=== PATIENT | female | born 1970 | race Caucasian/White ===

== ENCOUNTER 2017-03-14 11:02 | Emergency (ER) | payer OTHER ==
[~2017-03-14] VITALS: Ht 160 cm; Wt 76.2 kg
[2017-03-14 11:17] VITALS: BP 163/83
--- NOTE | 2017-03-14 11:33 | PHYS DOC ---
Past Medical History Past Medical History: No Pertinent History Past Surgical History: Appendectomy, Hysterectomy Additional Past Surgical Histo: BUNIONECTOMY, BACK SX Additional Information: 12 CIGS/DAY Alcohol Use: None Drug Use: None Adult General Chief Complaint Chief Complaint: FEVER HPI HPI Patient is a 46 year old female presents to the emergency department stating that she has been having frequency urgency or pain with urination for the last 2 days. She states she had a low-grade fever this morning stating that it was 99. She states she's had some nausea feeling but denies any vomiting. She'll states that she has been having lower back pain. She denies any vaginal discharge. Review of Systems Review of Systems Constitutional: Denies fever or chills [] Eyes: Denies change in visual acuity, redness, or eye pain [] HENT: Denies nasal congestion or sore throat [] Respiratory: Denies cough or shortness of breath [] Cardiovascular: No additional information not addressed in HPI [] GI: Denies abdominal pain, nausea, vomiting, bloody stools or diarrhea [] : dysuria denies hematuria [] Musculoskeletal: Denies back pain or joint pain [] Integument: Denies rash or skin lesions [] Neurologic: Denies headache, focal weakness or sensory changes [] Allergies Allergies Allergies Coded Allergies Type Severity Reaction Last Updated Verified morphine Allergy Intermediate Rash 03/14/17 Yes sulfamethoxazole Allergy Intermediate Hives 03/14/17 Yes trimethoprim Allergy Intermediate Hives 03/14/17 Yes citalopram Adverse Reaction Mild 03/14/17 Yes Physical Exam Physical Exam Constitutional: Well developed, well nourished, no acute distress, non-toxic appearance. [] HENT: Normocephalic, atraumatic, bilateral external ears normal, oropharynx moist, no oral exudates, nose normal. [] Eyes: PERRLA, EOMI, conjunctiva normal, no discharge. [] Neck: Normal range of motion, no tenderness, supple, no stridor. [] Cardiovascular:Heart rate regular rhythm, no murmur [] Lungs & Thorax: Bilateral breath sounds clear to auscultation [] Abdomen: Bowel sounds hypoactive, soft, suprapubic tenderness, no masses, no pulsatile masses. [] Skin: Warm, dry, no erythema, no rash. [] Back: No tenderness, no CVA tenderness. [] Extremities: No tenderness, no cyanosis, no clubbing, ROM intact, no edema. [] Neurologic: Alert and oriented X 3, normal motor function, normal sensory function, no focal deficits noted. [] Psychologic: Affect normal, judgement normal, mood normal. [] Current Patient Data Vital Signs Vital Signs Date Time Temp Pulse Resp B/P Pulse Ox O2 Delivery O2 Flow Rate FiO2 03/14/17 11:17 98.1 73 20 98 Room Air 98.1 Lab Values Laboratory Tests Test 03/14/17 11:20 Urine Collection Type Unknown Urine Color Yellow Urine Clarity Clear Urine pH 7.5 Urine Specific [place] 1.010 Urine Protein Negativemg/dL (NEG-TRACE) Urine Glucose (UA) Negativemg/dL (NEG) Urine Ketones (Stick) Negativemg/dL (NEG) Urine Blood Negative (NEG) Urine Nitrite Negative (NEG) Urine Bilirubin Negative (NEG) Urine Urobilinogen Dipstick 1.0mg/dL (0.2 mg/dL) Urine Leukocyte Esterase Small (NEG) Urine RBC 0/HPF (0-2) Urine WBC 5-10/HPF (0-4) Urine Squamous Epithelial Cells Few/LPF Urine Bacteria 0/HPF (0-FEW) EKG EKG [] Radiology/Procedures Radiology/Procedures [] Course & Med Decision Making Course & Med Decision Making Pertinent Labs and Imaging studies reviewed. (See chart for details) Was positive for urinary tract infection. Patient will be placed on Macrobid one tablet twice day for the next 7 days. Patient was instructed to drink plenty of fluids such as water and cranberry juice. Avoid cranberry juice cocktail carbonate beverages citrus fruits caffeine and alcohol sees her considered irritants to the bladder. Patient agrees with discharge instructions treatment regimens and follow-up recommendations. Signs and symptoms to return to the emergency department as been provided. Recommended patient follow-up with primary care physician next 7-10 days. Dragon Disclaimer Dragon Disclaimer This electronic medical record was generated, in whole or in part, using a voice recognition dictation system. Departure Departure Impression: Primary Impression: Urinary tract infection Disposition: HOME, SELF-CARE Condition: STABLE Patient Instructions: Urinary Tract Infection, [id number] Additional Instructions: Activity as tolerated. Tylenol or ibuprofen for fever chills or generalized body aches and discomfort. Medications as prescribed. Drink plenty of fluids such as water and cranberry juice. Avoid cranberry juice cocktail carbonate beverages, citrus fruits, or cough, caffeine as these are considered irritants to the bladder. Follow-up to primary care physician in the next 7-10 days. Return back to emergency department sign symptoms of become worse. Scripts Nitrofurantoin Monohyd/M-Cryst (Macrobid 100 Mg Capsule)100 Mg Capsule1 Cap PO BID #14 CAP Prov:YASMINE KAPLAN APRN 03/14/17 YASMINE KAPLAN APRN Mar 14, 2017 11:33
[2017-03-14 11:39] LABS: BILIRUBIN,URINE NEGATIVE (NEG); GLUCOSE,URINE NEGATIVE (NEG); NITRITE,URINE NEGATIVE (NEG); PH,URINE 7.5; PROTEIN,URINE NEGATIVE (NEG-TRACE)
[2017-03-14 11:54] LABS: RBC,URINE 0 /HPF (0-2)
[2017-03-14 11:55] LABS: BACTERIA,URINE 0 /HPF (0-FEW); SQUAMOUS EPITHELIAL CELL,UR FEW /LPF
[2017-03-14] MEDS ORDERED: NITR100C62 PO (12:00)
== END 2017-03-14 12:10 | disposition home or self-care (01) ==
LOC: ER 11:02
DX: N39.0 Urinary tract infection, site not specified (principal); F17.210 Nicotine dependence, cigarettes, uncomplicated; Z88.1 Allergy status to other antibiotic agents; Z88.5 Allergy status to narcotic agent; Z88.2 Allergy status to sulfonamides; Z88.8 Allergy status to other drugs, medicaments and biological substances
CPT/HCPCS: 81001; 81025; 87086; 99284

== ENCOUNTER 2017-08-05 19:06 | Emergency (ER) | payer OTHER ==
[~2017-08-05] VITALS: Ht 162.6 cm; Wt 76.2 kg
[~2017-08-05 19:06] MED LIST: NITR100C62 PO
[2017-08-05 19:24] VITALS: BP 168/70
[2017-08-05] MEDS: CYCLOBENZAPRINE 10 MG TABLET. PO ONE (20:10)
[2017-08-05] MEDS: HYDROcodone/APAP 5/325MG 1 TAB TABLET PO ONE (20:10)
[2017-08-05] MEDS: NAPROXEN 500 MG TABLET PO STA (20:11)
[2017-08-05] MEDS ORDERED: HYDR-971 PO (20:12)
[2017-08-05] MEDS ORDERED: NAPR-677 PO (20:12)
[2017-08-05] MEDS ORDERED: CYCL10TA2 PO (20:12)
--- NOTE | 2017-08-05 20:12 | PHYS DOC ---
Past Medical History Past Medical History: No Pertinent History Past Surgical History: Appendectomy, Hysterectomy Additional Past Surgical Histo: BUNIONECTOMY, BACK SX Alcohol Use: None Drug Use: None Adult General Chief Complaint Chief Complaint: MECHANICAL FALL HPI HPI Patient is a 47 year old female who presents with low back pain mostly on the coccyx moderate in nature and mild right shoulder pain that began sometime this afternoon. Patient states she was standing on a toilet painting above her head when the toilet broke and she fell through. Patient denies any loss of consciousness. Denies any pain radiating to bilateral lower extremities. Denies any loss of bowel bladder function. She states her pain is worse on sitting on her buttocks. Review of Systems Review of Systems Constitutional: Denies fever or chills [] Eyes: Denies change in visual acuity, redness, or eye pain [] HENT: Denies nasal congestion or sore throat [] Respiratory: Denies cough or shortness of breath [] Cardiovascular: No additional information not addressed in HPI [] GI: Denies abdominal pain, nausea, vomiting, bloody stools or diarrhea [] : Denies dysuria or hematuria [] Musculoskeletal: Coccyx pain and right shoulder pain Integument: Denies rash or skin lesions [] Neurologic: Denies headache, focal weakness or sensory changes [] Current Medications Current Medications Current Medications Medications (Trade) Dose Ordered Sig/Hugh Start Time Stop Time Status Last Admin Dose Admin Acetaminophen/ Hydrocodone Bitart (Lortab 5/325) 1 tab 1X ONCE 08/05/17 20:00 08/05/17 20:01 UNV Cyclobenzaprine HCl (Flexeril) 10 mg 1X ONCE 08/05/17 20:00 08/05/17 20:02 DC Naproxen (Naprosyn) 500 mg 1X STAT 08/05/17 19:59 08/05/17 20:02 DC Allergies Allergies Allergies Coded Allergies Type Severity Reaction Last Updated Verified morphine Allergy Intermediate Rash 03/14/17 Yes sulfamethoxazole Allergy Intermediate Hives 03/14/17 Yes trimethoprim Allergy Intermediate Hives 03/14/17 Yes citalopram Adverse Reaction Mild 03/14/17 Yes Physical Exam Physical Exam Constitutional: Well developed, well nourished, no acute distress, non-toxic appearance. [] HENT: Normocephalic, atraumatic, bilateral external ears normal, oropharynx moist, no oral exudates, nose normal. [] Eyes: PERRLA, EOMI, conjunctiva normal, no discharge. [] Neck: Normal range of motion, no tenderness, supple, no stridor. [] Cardiovascular:Heart rate regular rhythm, no murmur [] Lungs & Thorax: Bilateral breath sounds clear to auscultation [] Abdomen: Bowel sounds normal, soft, no tenderness, no masses, no pulsatile masses. [] Skin: Warm, dry, no erythema, no rash. [] Back: Mild tenderness on palpation of the coccyx, no CVA tenderness. [] Extremities: Right shoulder with no obvious deformity. No tenderness on palpation of the right shoulder. Patient states the pain is underneath the armpit. Full range of motion to the right shoulder. +2 right radial pulse. Cap refill less than 2 seconds the right fingers. Sensation intact to the right upper extremity. Adequate radial medial and ulnar sensation to the right forearm. Neurologic: Alert and oriented X 3, normal motor function, normal sensory function, no focal deficits noted. [] Psychologic: Affect normal, judgement normal, mood normal. [] Current Patient Data Vital Signs Vital Signs Date Time Temp Pulse Resp B/P (MAP) Pulse Ox O2 Delivery O2 Flow Rate FiO2 08/05/17 19:24 98.2 82 20 96 Room Air 98.2 EKG EKG [] Radiology/Procedures Radiology/Procedures [] Course & Med Decision Making Course & Med Decision Making Pertinent Labs and Imaging studies reviewed. (See chart for details) Patient is in the ED with low back pain, right shoulder pain after falling today. Lumbar x-rays interpreted by Dr. Kent were negative for any acute findings, right shoulder x-ray was noted for subluxation though it appears positional considering patient is able to perform full ROM to the shoulder. Patient was given hydrocodone and Flexeril and naproxen in the ED and discharged with the same. Recommended donut cushion for sitting on. Follow-up with PCP or orthopedic doctor provided in the next 7 days. Ice also recommended to the affected areas. Patient was provided a sling in the ED applied by the area intelligence technician, neurovascular exam is intact. Dragon Disclaimer Dragon Disclaimer This electronic medical record was generated, in whole or in part, using a voice recognition dictation system. Departure Departure Impression: Primary Impression: Fall from height of less than 3 feet Additional Impressions: Lumbar contusion Right shoulder pain Disposition: 01 HOME, SELF-CARE Condition: STABLE Referrals: NO PCP (PCP) AUDI MERCHANT II, MD Call his office tomorrow and set up a follow-up appointment Patient Instructions: Back Pain, Adult, Contusion, [id number], Fall Prevention and Home Safety, Shoulder Pain, [id number] Additional Instructions: You were seen with lumbar contusion and right shoulder pain after falling. Please follow-up with the provided orthopedic doctor by calling the office and setting up a follow-up appointment as soon as possible. You can apply ice or heat to the affected areas. Do not leave your right upper extremity in the sling more than an hour, try and remove your right upper extremity from the sling and taking it through full range of motion every hour. Scripts Hydrocodone/Apap 5-325 (NORCO 5-325 TABLET) 1 Each Tablet 1-2 TAB PO Q4-6HRS, #20 TAB Prov: BUBBA VILLAGRAN APRN 08/05/17 Cyclobenzaprine Hcl (CYCLOBENZAPRINE HCL) 10 Mg Tablet 1 TAB PO TID, #30 TAB Prov: BUBBA VILLAGRAN APRN 08/05/17 Naproxen Sodium (NAPROXEN SODIUM) 550 Mg Tablet 1 TAB PO BID, #20 TAB Prov: BUBBA VILLAGRAN APRN 08/05/17 Problem Qualifiers Additional Impressions: Lumbar contusion Encounter type: initial encounter Qualified Codes: S30.0XXA - Contusion of lower back and pelvis, initial encounter Right shoulder pain Chronicity: acute Qualified Codes: M25.511 - Pain in right shoulder BUBBA VILLAGRAN APRN Aug 05, 2017 20:12
--- NOTE | 2017-08-06 07:44 | RAD ---
Right shoulder, 3 views, 08/05/2017: History: Fall, pain No fracture or dislocation is identified. The periarticular soft tissues are unremarkable. IMPRESSION: No acute bony abnormality is detected.
--- NOTE | 2017-08-06 08:02 | RAD ---
Lumbar spine, 3 views, 08/05/2017: History: Fall, pain There is a mild thoracolumbar scoliosis. A laminectomy defect is evident at L4 and L5. The lumbar vertebral heights are well-maintained. There are mild scattered marginal spurs. The intervertebral disc spaces are fairly well preserved. There are mild degenerative changes involving the facet joints in the lower lumbar spine. No acute fracture or dislocation is evident. Several small scattered air-fluid levels are noted in the GI tract. IMPRESSION: 1. Mild degenerative change. 2. Mild thoracolumbar scoliosis. 3. Previous lower lumbar laminectomy. 4. No acute bony abnormality is detected.
== END 2017-08-05 20:15 | disposition home or self-care (01) ==
LOC: ER 19:06
DX: S30.0XXA Contusion of lower back and pelvis, initial encounter (principal); M25.511 Pain in right shoulder; Z88.5 Allergy status to narcotic agent; Z88.1 Allergy status to other antibiotic agents; Z88.8 Allergy status to other drugs, medicaments and biological substances; W17.89XA Other fall from one level to another, initial encounter; Y93.89 Activity, other specified; Y99.8 Other external cause status; Y92.89 Other specified places as the place of occurrence of the external cause
CPT/HCPCS: 72100; 73030; 99284

== ENCOUNTER 2017-08-23 02:50 | Emergency (ER) | payer OTHER ==
[~2017-08-23] VITALS: Ht 160 cm; Wt 81.6 kg
[~2017-08-23 02:50] MED LIST changes: +CYCL10TA2 PO; +HYDR-971 PO; +NAPR-677 PO
[2017-08-23 03:02] VITALS: BP 137/78
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
== END 2017-08-23 04:00 | disposition left against medical advice (07) ==
LOC: ER 02:50 → EEVIPCON 02:50 → ER 04:00
DX: S09.90XA Unspecified injury of head, initial encounter (principal); M54.2 Cervicalgia; Z88.2 Allergy status to sulfonamides; Z88.1 Allergy status to other antibiotic agents; Z88.5 Allergy status to narcotic agent; Y08.89XA Assault by other specified means, initial encounter; Y93.89 Activity, other specified; Y99.8 Other external cause status; Y92.89 Other specified places as the place of occurrence of the external cause
CPT/HCPCS: 99283